=== PATIENT | female | born 2000 | race Two or more races ===

== ENCOUNTER 2021-12-28 02:25 | Outpatient (CLI) | payer OTHER ==
[2021-12-28] MEDS ORDERED: PRENATAL TABLE1 EAC1 PO (02:36)
== END 2021-12-28 07:52 | disposition home or self-care (01) ==
LOC: OBS/DEL 02:25
PROVIDERS: ATTEND Specialist
DX: O47.1 False labor at or after 37 completed weeks of gestation (principal); Z3A.38 38 weeks gestation of pregnancy